=== PATIENT | female | born 1995 | race Caucasian/White ===

== ENCOUNTER 2022-07-05 13:26 | Emergency (ER) | payer OTHER ==
[~2022-07-05] VITALS: Ht 157.5 cm; Wt 55.3 kg
[~2022-07-05 13:26] MED LIST: ACET-10509 PO; FERR325E14 PO; PREN-385 PO
[2022-07-05 13:48] VITALS: BP 125/73
--- NOTE | 2022-07-05 13:55 | NUR ---
PT AMB TO BED 7.
[2022-07-05] MEDS ORDERED: DIPH25TA53 PO (14:43)
[2022-07-05] MEDS ORDERED: HYDR28CR38 TP (14:43)
--- NOTE | 2022-07-05 15:20 | NUR ---
27 y/o female bib self, c/o rash that started 5 days ago. pt denies any fevers, body aches, chills, recent travel or insect bites that she knows of. states rash started on both of her feet and has spread on her hands and feet. a&ox4, ambulates with steady gait. pmh: denies nka med: denies
--- NOTE | 2022-07-05 15:27 | NUR ---
Patient discharged with v/s stable. Written and verbal after care instructions given and explained. Patient alert, oriented and verbalized understanding of instructions. Ambulatory with steady gait. All questions addressed prior to discharge. ID band removed. Patient advised to follow up with PMD. Rx of benadryl, cortizone (sent) given. Patient educated on indication of medication including possible reaction and side effects. Opportunity to ask questions provided and answered. school note given
[2022-07-05 15:29] VITALS: BP 125/73
== END 2022-07-05 16:06 | disposition home or self-care (01) ==
LOC: MED 13:26
DX: R21 Rash and other nonspecific skin eruption (principal)
CPT/HCPCS: 86592; 99283